=== PATIENT | female | born 1960 | race Caucasian/White ===

== ENCOUNTER 2019-04-16 10:40 | Emergency (ER) | payer OTHER ==
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
[2019-04-16] MEDS ORDERED: Sodium Chloride 0.9% 2.5 ML Syringe FLUSH PRN (11:15)
[2019-04-16] MEDS ORDERED: Ondansetron 4 MG/2 ML SDV IVPUSH ONE (11:15)
[2019-04-16] MEDS ORDERED: Sodium Chloride 0.9% 1,000 ML IV ONE (11:15)
[2019-04-16] MEDS ORDERED: Sodium Chloride 0.9% 10 ML Syringe FLUSH PRN (11:15)
[2019-04-16 11:58] LABS: CARBON DIOXIDE,CO2 24.9 mmol/L (21.0-32.0); POTASSIUM,K 4.1 mmol/L (3.5-5.1)
[2019-04-16 12:26] VITALS: BP 151/89; PULSE 96
== END 2019-04-16 13:05 | disposition home or self-care (01) ==
LOC: MW.ED 10:40
DX: R10.10 Upper abdominal pain, unspecified (principal); R11.0 Nausea; Z88.5 Allergy status to narcotic agent; Z91.040 Latex allergy status; Z91.018 Allergy to other foods
CPT/HCPCS: 36415; 80053; 83690; 84484; 85025; 93005; 96361; 96374; 99283; J2405; J7040

== ENCOUNTER 2019-04-26 09:05 | Day surgery (SDC) | payer OTHER ==
[~2019-04-26 09:05] MED LIST: Lactated Ringers 1,000 ML IV SCH
[2019-04-26] MEDS ORDERED: Ondansetron 4 MG/2 ML SDV IVPUSH ONE (09:32)
--- NOTE | 2019-04-26 09:35 | PCM.PREANE ---
Preanesthetic Assessment - Anesthesia/Transfusion/Family Hx Anesthesia History: Prior Anesthesia Without Reaction Other Type of Anesthesia Reaction Comment: Denies any known problems with anesthesia in past Family History of Anesthesia Reaction: No Transfusion History: No Prior Transfusion(s) Intubation History: Unknown - Review of Systems General: No Symptoms Pulmonary: No Symptoms Cardiovascular: No Symptoms Gastrointestinal: Abdominal Pain, Nausea Neurological: No Symptoms Other: Reports: None - Physical Assessment Height: 5 ft 6 in Weight: 68.492 kg ASA Class: 2 Mental Status: Alert & Oriented x3 Airway Class: Mallampati = 2 Dentition: Reports: Normal Dentition, [place](s) (few on back side) Thyro-Mental Finger Breadths: 3 Mouth Opening Finger Breadths: 3 ROM/Head Extension: Full Lungs: Clear to Auscultation, Normal Respiratory Effort Cardiovascular: Regular Rate, Regular Rhythm - Allergies Allergies/Adverse Reactions: Allergies Allergy/AdvReac Type Severity Reaction Status Date / Time codeine Allergy Unknown Vomiting Verified 04/16/19 10:47 banana [Banana] Allergy Vomiting Verified 04/21/19 09:21 latex Allergy due to Unverified 04/21/19 09:21 banana/kiwi allergy Kiwi Allergy Itching Uncoded 04/16/19 10:47 - Blood Blood Available: No - Anesthesia Plan Pre-Op Medication Ordered: None - Acknowledgements Anesthesia Type Planned: MAC Pt an Appropriate Candidate for the Planned Anesthesia: Yes Alternatives and Risks of Anesthesia Discussed w Pt/Guardian: Yes Pt/Guardian Understands and Agrees with Anesthesia Plan: Yes PreAnesthesia Questionnaire HEENT History: Reports: Other (See Below) Other HEENT History: wears glasses Cardiovascular History: Reports: None Respiratory History: Reports: None Gastrointestinal History: Reports: Colon Polyp, GERD Genitourinary History: Reports: None Musculoskeletal History: Reports: Neck Pain, Chronic Neurological History: Reports: None Psychiatric History: Reports: Anxiety Endocrine/Metabolic History: Reports: Hypothyroidism Hematologic History: Reports: None Immunologic History: Reports: None Oncologic (Cancer) History: Reports: None Dermatologic History: Reports: Eczema - Infectious Disease History Infectious Disease History: Reports: Chicken Pox - Past Surgical History Head Surgeries/Procedures: Reports: None HEENT Surgical History: Reports: None Cardiovascular Surgical History: Reports: None Respiratory Surgical History: Reports: None GI Surgical History: Reports: Cholecystectomy, Colonoscopy, EGD, Shashank Fundoplication Female Surgical History: Reports: Hysterectomy Endocrine Surgical History: Reports: Thyroidectomy, Other (See Below) Other Endocrine Surgeries/Procedures: thyroid surgery Neurological Surgical History: Reports: None Musculoskeletal Surgical History: Reports: None Oncologic Surgical History: Reports: None Dermatological Surgical History: Reports: None - SUBSTANCE USE Smoking Status *Q: Never Smoker Recreational Drug Use History: No - HOME MEDS Home Medications: Home Meds Levothyroxine Sodium [Synthroid] 75 mcg PO ACBRK 03/22/14 [History] busPIRone [Buspar] 15 tab PO DAILY 03/22/14 [History] Dicyclomine [Bentyl] 20 mg PO ASDIRECTED PRN 04/16/19 [History] Ondansetron [Zofran ODT] 4 mg PO Q6H PRN #15 tab.dis 04/16/19 [Rx] Esomeprazole Magnesium [Nexium] 20 mg PO DAILY 04/21/19 [History] LORazepam 1 mg PO ASDIRECTED PRN 04/21/19 [History] Mirabegron [Myrbetriq] 50 mg PO DAILY 04/21/19 [History] - CURRENT (IN HOUSE) MEDS Current Meds: Current Medications Lactated Ringer's (Ringers, Lactated) 1,000 mls @ 125 mls/hr IV ASDIRECTED JACKIE
[2019-04-26] MEDS ORDERED: Propofol 200 MG/20 ML SDV ONE (09:52)
[2019-04-26] MEDS ORDERED: fentaNYL 100 MCG/2 ML SDV ONE (09:53)
[2019-04-26] MEDS ORDERED: Ondansetron 4 MG/2 ML SDV ONE (09:53)
[2019-04-26] MEDS ORDERED: Midazolam 1 MG/ML 2 ML SDV ONE (09:53)
--- NOTE | 2019-04-26 11:23 | PCM.OPNOTE ---
- General Post-Op/Procedure Note Date of Surgery/Procedure: 04/26/19 Operative Procedure(s): egd w bx. colon bx Findings: see [id number] Pre Op Diagnosis: abd pain/n/v Post-Op Diagnosis: Same Anesthesia Technique: Moderate Sedation Primary Surgeon: aRjan Urias Pathology: egd bx colon bx Complications: None Condition: Good
--- NOTE | 2019-04-26 11:43 | PCM.POSTAN ---
POST ANESTHESIA ASSESSMENT - MENTAL STATUS Mental Status: Alert, Oriented - VITAL SIGNS Vital Signs: Last Vital Signs Temp 37.0 C 04/26/19 09:30 Pulse 98 04/26/19 11:19 Resp 18 04/26/19 11:19 BP 150/88 H 04/26/19 11:19 Pulse Ox 98 04/26/19 11:19 - RESPIRATORY Respiratory Status: Respiratory Rate WNL, Airway Patent, O2 Saturation Stable - CARDIOVASCULAR CV Status: Pulse Rate WNL, Blood Pressure Stable - GASTROINTESTINAL GI Status: No Symptoms - PAIN Pain Score: 0 - POST OP HYDRATION Hydration Status: Adequate & Stable - OBSERVATIONS Free Text/Narrative:: no anesthesia problems
[2019-04-26 11:45] VITALS: BP 141/89; PULSE 92
--- NOTE | 2019-04-26 12:03 | PCM48HPAN ---
Post Anesthesia Note - EVALUATION WITHIN 48HRS OF ANESTHETIC Vital Signs in Normal Range: Yes Patient Participated in Evaluation: Yes Respiratory Function Stable: Yes Airway Patent: Yes Cardiovascular Function Stable: Yes Hydration Status Stable: Yes Pain Control Satisfactory: Yes Nausea and Vomiting Control Satisfactory: Yes Mental Status Recovered: Yes Vital Signs: Last Vital Signs Temp 36.3 C 04/26/19 11:26 Pulse 92 04/26/19 11:26 Resp 16 04/26/19 11:26 BP 141/89 H 04/26/19 11:26 Pulse Ox 98 04/26/19 11:26 - COMMENTS/OBSERVATIONS Free Text/Narrative:: no anesthesia problems
--- NOTE | 2019-04-26 12:14 | OR ---
SURGEON: Rajan Urias MD DATE OF PROCEDURE: 04/26/2019 PREOPERATIVE DIAGNOSES: Abdominal pain, nausea, and vomiting. POSTOPERATIVE DIAGNOSES: Esophagogastroduodenoscopy diagnosis is gastric polyp and colon diagnosis is colitis. PROCEDURES PERFORMED: Esophagogastroduodenoscopy with biopsy and colonoscopy with biopsy. DESCRIPTION OF PROCEDURE: EGD: The patient was taken to the endoscopy room, and with the BOATSWAIN MATE, Diprivan was administered. A well-lubricated EGD scope was gently inserted through the oropharynx, down the esophagus, passing through the gastroesophageal junction, into the stomach. The mucosa was examined upon the passage. Any etiology will be noted. Once in the stomach, we continued to advance to the distal antrum, passed through the pylorus into the second portion of the duodenum. Again, the mucosa was examined for any abnormality and etiology. The scope was then retrieved back to the stomach and then retroflexed to look at the fundus of the stomach. If a biopsy was indicated, we will biopsy the antrum, body, and gastroesophageal junction. The air will be sucked out while the scope is retrieved to reduce the patient's discomfort. The patient tolerated the procedure well. There were no intraoperative complications. Dr. Urias was present through the whole procedure. Prior to surgery, a time-out had been called, the patient identified, procedure identified and antibiotic administered. The patient was taken to the endoscopy room. A time out was called, patient identified, and procedure identified. Diprivan was then administrated. Patient went from awake to sleep, hearing doctor talking or door closing is normal. Perineum inspection and digital examination were then performed. A well- lubricated colonoscope was gently inserted through the rectum, advanced past the rectosigmoid junction, the descending colon, splenic flexure, transverse colon, hepatic flexure, ascending colon, arrived to the cecum. Cecum was identified as dictated in the finding. Then the scope was carefully withdrawn while attention was paid to the mucosal surface for any abnormality. Air will be sucked out during the scope withdrawal. At the rectum, retroflexed to examine any rectal diseases, fistula or hemorrhoids. During mucosal examination, abnormality or polyp was noted; picture taken and biopsy performed. Patient tolerated procedure well. There were no intraoperative complications, and Dr. Urias was present throughout the whole procedure. FINDINGS: EGD findings: 1. The patient is easily sedated with BOATSWAIN MATE and Diprivan, the patient is soundly snoring. 2. Oropharynx and proximal esophagus are free of disease, stricture, inflammation. In fact, I can hardly see the GE junction as the patient has Shashank fundoplication. Anyway, the stomach begins at 35 and shows a very minimal salmon-colored change, suggests no acid reflux or mild. Stomach rugae are normal in appearance. Antrum is mildly inflamed. Duodenum is grossly normal, but stomach has a lot of polyp and some of them are quite large, almost like 6 to 7 mm. The duodenal bulb has a polyp, very small, about 4 mm. It was biopsied, removed. The second portion of duodenum is grossly normal. Retroflexed look at the fundus of stomach and it looked like there is a wrap, but apparently it is not like the wrap seen in previous scope. It looked like it has been migrating. No food particle or blood or ulcer observed. Biopsy done at the polyp and antrum and body and GE junction at 35 and sucked out the gas while scope pulling out. During the whole study, there is no food particle, bile, blood, ulcer observed. Colonoscopy findings: 1. The patient is easily sedated with BOATSWAIN MATE and Diprivan, the patient is soundly snoring. 2. Bowel prep is average to above average, some liquid stool, no semi-formed stool. 3. Colon is rather straightforward. Cecum indicated by ileocecal fold, one-to- one indentation, appendiceal orifice. ScopeGuide pointing south. Light emittance is not observed. Mucosa examined upon scope pulling out with some irrigation. The patient does not have diverticulosis or polyp or mass, growth. The patient has quite inflamed colitis at around 90 cm close to the hepatic flexure. Biopsy done. It is a very short area. The colitis area is probably about 5 to 10 cm, very short distance. It was biopsied and random biopsy done throughout the colon because of the patient's abdominal pain. The patient has some external hemorrhoids and mild internal hemorrhoids. The patient would benefit from repeat colonoscopy in 10 years from today or if clinically indicated otherwise. EUN / KAREN /[id number]
== END 2019-04-26 12:40 | disposition home or self-care (01) ==
LOC: MW.SDS 09:05
PROVIDERS: ATTEND Surgery
DX: K29.50 Unspecified chronic gastritis without bleeding (principal); K31.89 Other diseases of stomach and duodenum; K31.7 Polyp of stomach and duodenum; K52.9 Noninfective gastroenteritis and colitis, unspecified; K64.4 Residual hemorrhoidal skin tags; K64.8 Other hemorrhoids; K21.9 Gastro-esophageal reflux disease without esophagitis; E03.9 Hypothyroidism, unspecified; F41.9 Anxiety disorder, unspecified; Z88.5 Allergy status to narcotic agent; Z79.899 Other long term (current) drug therapy; Z91.018 Allergy to other foods
CPT/HCPCS: 43239; 45380; J2001; J2250; J2405; J2704; J3010; J7120; 00813; 88305; 88312

== ENCOUNTER 2020-11-05 23:53 | Emergency (ER) | payer OTHER ==
--- NOTE | 2020-11-06 00:23 | EDM.PDOC ---
ED HPI GENERAL MEDICAL PROBLEM - General Chief Complaint: General Stated Complaint: FATIGUE, UPSET STOMACH Time Seen by Provider: 11/06/20 00:07 - History of Present Illness INITIAL COMMENTS - FREE TEXT/NARRATIVE: History of present illness: [] Over the last 3 days patient has increasing problem with fatigue. She is profoundly fatigued shortly after she eats a meal. It gets a little better if she has temporary chocolate candy intake. Tonight she also had pain that was sudden and sharp in the left chest on the left breast but she has residual soreness there after this short pain went away. She also had some discomfort in her left thigh for 3 days. This caused her concern that she might have a blood clot. The patient has suffered for more than a year with postprandial fatigue. She does not sleep well and takes lorazepam at bedtime. Her is out of town for 3 days and this is disrupted her cycle somewhat. Review of systems: As per history of present illness and below otherwise all systems reviewed and negative. Past medical history: As per history of present illness and as reviewed below otherwise noncontributory. Surgical history: As per history of present illness and as reviewed below otherwise noncontributory. Social history: No reported history of drug or alcohol abuse. Family history: As per history of present illness and as reviewed below otherwise noncontributory. Physical exam: Constitutional - well developed, well-nourished and in no acute distress HEENT - normocephalic, no evidence of trauma - external nose and mouth normal - no mass in neck and no JVD - mucosae moist EYES - full EOM, PERRL, no icterus - no evidence of inflammation, injection, or drainage Respiratory - no respiratory distress, equal bilateral expansion, lungs clear to auscultation and no abnormal lung sounds Cardiovascular - Regular Rhythm with S1 and S2 appreciated and no murmur, gallop or rub. GI - abdomen soft without distension or organomegaly - normal bowel sounds - no guard or rebound Musculoskeletal no gross deformity of long bones or joints - no tenderness, swelling or edema Neurologic - Alert and oriented times four - CN II-XII grossly intact - motor sensory and coordination symmetrically normal Psychiatric -patient has coherent speech and is easy to follow her train of thought. However her speech is very quick almost pressured. She goes from subject to subject really quickly. She has a lot of concerns and worries. Appropriate mood and affect with normal thought content Hematologic - No petechiae or purpura - mucosa appropriate color and sclera not pale - normal nail bed color and refill Integument - no rash or evidence of trauma - normal turgor Diagnostics: [] Therapeutics: [] Impression: [] Plan: [] Definitive disposition and diagnosis as appropriate pending reevaluation and review of above. Middle Abdomen Pain Score (Numeric/FACES): 5 - Related Data Allergies Allergy/AdvReac Type Severity Reaction Status Date / Time codeine Allergy Unknown Vomiting Verified 11/06/20 00:03 banana [Banana] Allergy Vomiting Verified 11/06/20 00:03 latex Allergy due to Verified 11/06/20 00:03 banana/kiwi allergy Kiwi Allergy Mild Itching Uncoded 11/06/20 00:03 Home Meds: Home Meds Levothyroxine Sodium [Synthroid] 75 mcg PO ACBRK 03/22/14 [History] busPIRone [Buspar] 15 tab PO DAILY 03/22/14 [History] Dicyclomine [Bentyl] 20 mg PO ASDIRECTED PRN 04/16/19 [History] Ondansetron [Zofran ODT] 4 mg PO Q6H PRN #15 tab.dis 04/16/19 [Rx] Esomeprazole Magnesium [Nexium] 20 mg PO DAILY 04/21/19 [History] LORazepam 1 mg PO ASDIRECTED PRN 04/21/19 [History] Mirabegron [Myrbetriq] 50 mg PO DAILY 04/21/19 [History] Past Medical History HEENT History: Reports: Other (See Below) Other HEENT History: wears glasses Cardiovascular History: Reports: None Respiratory History: Reports: None Gastrointestinal History: Reports: Colon Polyp, GERD Genitourinary History: Reports: None Musculoskeletal History: Reports: Neck Pain, Chronic Neurological History: Reports: None Psychiatric History: Reports: Anxiety Endocrine/Metabolic History: Reports: Hypothyroidism Hematologic History: Reports: None Immunologic History: Reports: None Oncologic (Cancer) History: Reports: None Dermatologic History: Reports: Eczema - Infectious Disease History Infectious Disease History: Reports: Chicken Pox - Past Surgical History Head Surgeries/Procedures: Reports: None HEENT Surgical History: Reports: None Cardiovascular Surgical History: Reports: None Respiratory Surgical History: Reports: None GI Surgical History: Reports: Cholecystectomy, Colonoscopy, EGD, Shashank Fundoplication Female Surgical History: Reports: Hysterectomy Endocrine Surgical History: Reports: Thyroidectomy, Other (See Below) Other Endocrine Surgeries/Procedures: thyroid surgery Neurological Surgical History: Reports: None Musculoskeletal Surgical History: Reports: None Oncologic Surgical History: Reports: None Dermatological Surgical History: Reports: None Social & Family History - Family History Family Medical History: No Pertinent Family History - Tobacco Use Tobacco Use Status *Q: Never Tobacco User - Caffeine Use Caffeine Use: Reports: None - Recreational Drug Use Recreational Drug Use: No ED ROS GENERAL - Review of Systems Review Of Systems: Comprehensive ROS is negative, except as noted in HPI. ED EXAM, GENERAL - Physical Exam Exam: See Below Free Text/Narrative:: My physical exam is in the HPI #1 Interpretation EKG Interpretation Comments: EKG done at 1:00 AM heart sinus tachycardia heart rate 103 NC interval 146 QT duration 422. [place] 54. Normal QRS. Nonspecific ST changes. Compared to 04/16/2019 no change impression no acute injury Course - Vital Signs Text/Narrative:: Patient felt somewhat better and her vital signs improved after lorazepam. Impression is that there is some significant stress overlay. The rest of her labs look good she did have some chest pain that may be inflammatory. Last Recorded V/S: Last Vital Signs Temp 36.4 C 11/06/20 00:03 Pulse 87 11/06/20 01:25 Resp 17 11/06/20 01:25 BP 146/83 H 11/06/20 01:25 Pulse Ox 98 11/06/20 01:25 - Orders/Labs/Meds Orders: Active Orders 24 hr Category Date Time Status EKG Documentation Completion [RC] AM Care 11/06/20 00:43 Active Sodium Chloride 0.9% [Saline Flush] Med 11/06/20 00:43 Active 10 ml FLUSH ASDIRECTED PRN Sodium Chloride 0.9% [Saline Flush] Med 11/06/20 00:43 Active 2.5 ml FLUSH ASDIRECTED PRN Saline Lock Insert [OM.PC] Stat Oth 11/06/20 00:43 Ordered Medication Orders Sodium Chloride (Sodium Chloride 0.9% 10 Ml Syringe) 10 ml FLUSH ASDIRECTED PRN PRN Reason: Keep Vein Open Last Admin: 11/06/20 01:09 Dose: 10 ml Documented by: VIDA Sodium Chloride (Sodium Chloride 0.9% 2.5 Ml Syringe) 2.5 ml FLUSH ASDIRECTED PRN PRN Reason: Keep Vein Open Last Admin: 11/06/20 01:10 Dose: 2.5 ml Documented by: VIDA Labs: Laboratory Tests 11/06/20 11/06/20 11/06/20 Range/Units 01:05 01:05 01:05 WBC 5.93 (4.0-11.0) K/uL RBC 4.57 (4.30-5.90) M/uL Hgb 13.7 (12.0-16.0) g/dL Hct 40.4 (36.0-46.0) % MCV 88.4 (80.0-98.0) fL MCH 30.0 (27.0-32.0) pg MCHC 33.9 (31.0-37.0) g/dL RDW Std Deviation 41.9 (28.0-62.0) fl RDW Coeff of Maty 13 (11.0-15.0) % Plt Count 192 (150-400) K/uL MPV 9.10 (7.40-12.00) fL Neut % (Auto) 73.5 (48.0-80.0) % Lymph % (Auto) 14.2 L (16.0-40.0) % Reagan % (Auto) 11.1 (0.0-15.0) % Eos % (Auto) 1.0 (0.0-7.0) % Baso % (Auto) 0.2 (0.0-1.5) % Neut # (Auto) 4.4 (1.4-5.7) K/uL Lymph # (Auto) 0.8 (0.6-2.4) K/uL Reagan # (Auto) 0.7 (0.0-0.8) K/uL Eos # (Auto) 0.1 (0.0-0.7) K/uL Baso # (Auto) 0.0 (0.0-0.1) K/uL D-Dimer, Quantitative 0.19 (0.0-0.50) mg/L FEU Sodium 141 (136-145) mmol/L Potassium 3.8 (3.5-5.1) mmol/L Chloride 104 (98-107) mmol/L Carbon Dioxide 27.0 (21.0-32.0) mmol/L BUN 12 (7.0-18.0) mg/dL Creatinine 0.9 (0.6-1.0) mg/dL Est Cr Clr Drug Dosing 60.56 mL/min Estimated GFR (MDRD) > 60.0 ml/min Glucose 118 H (74-106) mg/dL Calcium 8.5 (8.5-10.1) mg/dL Total Bilirubin 0.3 (0.2-1.0) mg/dL AST 13 L (15-37) IU/L ALT 17 (14-63) IU/L Alkaline Phosphatase 64 (46-116) U/L Troponin I < 0.050 (0.000-0.056) ng/mL Total Protein 7.4 (6.4-8.2) g/dL Albumin 4.0 (3.4-5.0) g/dL Globulin 3.4 (2.6-4.0) g/dL Albumin/Globulin Ratio 1.2 (0.9-1.6) Free T4 1.22 (0.76-1.46) ng/dL TSH 3rd Generation 0.93 (0.36-3.74) uIU/mL Meds: Medications Generic Name Dose Route Start Last Admin Trade Name Freq PRN Reason Stop Dose Admin Sodium Chloride 10 ml 11/06/20 00:43 11/06/20 01:09 Sodium Chloride 0.9% 10 Ml Syringe FLUSH 10 ml ASDIRECTED PRN Administration Keep Vein Open Sodium Chloride 2.5 ml 11/06/20 00:43 11/06/20 01:10 Sodium Chloride 0.9% 2.5 Ml Syringe FLUSH 2.5 ml ASDIRECTED PRN Administration Keep Vein Open Discontinued Medications Generic Name Dose Route Start Last Admin Trade Name Freq PRN Reason Stop Dose Admin Lorazepam 1 mg 11/06/20 00:45 11/06/20 00:54 Lorazepam 1 Mg Tab PO 11/06/20 00:46 1 mg ONETIME ONE Administration Departure - Departure Time of Disposition: 02:09 Disposition: Home, Self-Care 01 Condition: Good Clinical Impression: Fatigue, Chest wall pain - Discharge Information Instructions: Fatigue, Chest Wall Pain, [id number] Referrals: Beatrice Miranda NP [Primary Care Provider] - Forms: ED Department Discharge Additional Instructions: All of his symptoms would benefit from good rest. Drop in energy level shortly after a meal suggest a possible need for glucose tolerance test and consideration of postprandial hypoglycemia. If you worry about things and it accelerates your heart rate or raise your blood pressure you need to find a way to deal with those things. [facility] Address: [address] [place] [id number] Hours: walk in 9 AM M-F Chest wall pain should respond to better sleep, more rest, less stress, and anti-inflammatory medicine such as ibuprofen or naproxen. [facility] [address] [place] [id number] [facility] [address] [place] [id number] The following information is given to patients seen in the emergency department who are being discharged to home. This information is to outline your options for follow-up care. We provide all patients seen in our emergency department with a follow-up referral. The need for follow-up, as well as the timing and circumstances, are variable depending upon the specifics of your emergency department visit. If you don't have a primary care physician on staff, we will provide you with a referral. We always advise you to contact your personal physician following an emergency department visit to inform them of the circumstance of the visit and for follow-up with them and/or the need for any referrals to a consulting specialist. The emergency department will also refer you to a specialist when appropriate. This referral assures that you have the opportunity for follow-up care with a specialist. All of these measure are taken in an effort to provide you with optimal care, which includes your follow-up. Under all circumstances we always encourage you to contact your private physician who remains a resource for coordinating your care. When calling for follow-up care, please make the office aware that this follow-up is from your recent emergency room visit. If for any reason you are refused follow-up, please contact the [facility] Emergency Department at and asked to speak to the emergency department charge nurse. Sepsis Event Note (ED) - Evaluation Sepsis Screening Result: No Definite Risk - Focused Exam Vital Signs: Vital Signs Temp Pulse Resp BP Pulse Ox 11/06/20 01:25 87 17 146/83 H 98 11/06/20 00:03 36.4 C 120 H 19 171/105 H 96 - My Orders Last 24 Hours: My Active Orders 11/06/20 00:43 EKG Documentation Completion [RC] AM Sodium Chloride 0.9% [Saline Flush] 10 ml FLUSH ASDIRECTED PRN Sodium Chloride 0.9% [Saline Flush] 2.5 ml FLUSH ASDIRECTED PRN Saline Lock Insert [OM.PC] Stat - Assessment/Plan Last 24 Hours: My Active Orders 11/06/20 00:43 EKG Documentation Completion [RC] AM Sodium Chloride 0.9% [Saline Flush] 10 ml FLUSH ASDIRECTED PRN Sodium Chloride 0.9% [Saline Flush] 2.5 ml FLUSH ASDIRECTED PRN Saline Lock Insert [OM.PC] Stat
[2020-11-06] MEDS ORDERED: Sodium Chloride 0.9% 2.5 ML Syringe FLUSH PRN (00:43)
[2020-11-06] MEDS ORDERED: Sodium Chloride 0.9% 10 ML Syringe FLUSH PRN (00:43)
[2020-11-06] MEDS ORDERED: LORazepam 1 MG Tab PO ONE (00:45)
--- NOTE | 2020-11-06 01:16 | CR ---
Indication: Chest pain Technique: Chest 1 view Comparison: None Findings/Impression: Cardiovascular and mediastinum: Heart size and vasculature are normal in caliber and appearance. Lungs and pleural space: Lungs are clear. No sign of infiltrate or mass. No sign of pleural effusion. No pneumothorax. Bones and soft tissues: No acute findings. Dictated by Dewayne Brown MD @ 11/06/2020 1:14:[address] Dewayne Brown @ Nov 06 2020 1:14AM
[2020-11-06 01:47] LABS: BLOOD UREA NITROGEN,BUN 12 mg/dL (7.0-18.0); CHLORIDE,CL 104 mmol/L (98-107); GLUCOSE RANDOM 118 mg/dL (74-106); POTASSIUM,K 3.8 mmol/L (3.5-5.1); SODIUM,NA 141 mmol/L (136-145)
[2020-11-06 02:23] VITALS: BP 146/87; PULSE 70
== END 2020-11-06 02:24 | disposition home or self-care (01) ==
LOC: MW.ED 23:53
DX: R53.83 Other fatigue (principal); R07.89 Other chest pain; K21.9 Gastro-esophageal reflux disease without esophagitis; E03.9 Hypothyroidism, unspecified; R00.0 Tachycardia, unspecified; Z88.5 Allergy status to narcotic agent; Z91.018 Allergy to other foods; Z91.040 Latex allergy status; Z79.899 Other long term (current) drug therapy
CPT/HCPCS: 36415; 71045; 80053; 84439; 84443; 84484; 85025; 85379; 99285; A9270

== ENCOUNTER 2020-11-11 08:29 | Emergency (ER) | payer OTHER ==
[2020-11-11] MEDS ORDERED: Lactated Ringers 1,000 ML IV ONE (09:39)
[2020-11-11] MEDS ORDERED: Morphine 4 MG/ML Syringe IVPUSH ONE (09:41)
[2020-11-11] MEDS ORDERED: Ondansetron 4 MG/2 ML SDV IVPUSH ONE (10:00)
[2020-11-11] MEDS ORDERED: Ondansetron 4 MG/2 ML SDV ONE (10:01)
[2020-11-11 10:56] LABS: BLOOD UREA NITROGEN,BUN 11 mg/dL (7.0-18.0); CARBON DIOXIDE,CO2 27.8 mmol/L (21.0-32.0); CHLORIDE,CL 103 mmol/L (98-107); GLUCOSE RANDOM 113 mg/dL (74-106); LIPASE 44 U/L (73-393); POTASSIUM,K 4.1 mmol/L (3.5-5.1); SODIUM,NA 140 mmol/L (136-145)
--- NOTE | 2020-11-11 12:26 | CT ---
INDICATION: Left upper quadrant pain. History of Shashank fundoplication. COMPARISON: March 02, 2014. TECHNIQUE: CT examination of the abdomen and pelvis was performed following the uneventful intravenous administration of 100 cc of Isovue 3 7. Thin section axial images were obtained from the lung bases through the pubic symphysis. Oral contrast was administered for this study. Please note that all CT scans at this facility use dose modulation, iterative reconstruction, and/or weight-based dosing when appropriate to reduce radiation dose to as low as reasonably achievable. FINDINGS: LUNG BASES: The lung bases as visualized appear normal. The heart size is normal and the lung bases. There is a hiatal hernia and there are findings of a Shashank fundoplication.The heart size is normal at the lung bases. LIVER/BILIARY SYSTEM:The liver is normal in size and configuration. There is no focal mass and there is no intra- or extra hepatic biliary ductal dilatation.The gallbladder is surgically absent ADRENALS: Normal KIDNEYS, URETERS and BLADDER:Kidneys are normal in size. Benign low-density lesion in the midpole the right kidney measuring 1.8 centimeters. The bladder is distended but there is no evidence of obstructive uropathy. SPLEEN:Normal appearance. PANCREAS: Appears normal. RETROPERITONEUM and MESENTERY: There is no mass, adenopathy or aortic aneurysm. Atherosclerotic vascular calcifications GASTROINTESTINAL SYSTEM: There is no obstruction associated with the fundoplication. The small bowel as visualized appears normal. There is diffuse gaseous distention of colon without air fluid levels, wall thickening or inflammatory process. There is an area of narrowing at this sigmoid junction with the descending colon best seen on axial image 123 of 191. This could be due to a stricture or spasm or conceivably a mass. Mass is not directly visualized. Appropriate follow-up recommended at a clinically appropriate time. PELVIS: There is a 2 centimeter low-density lesion likely in the left ovary. As this patient is presumably postmenopausal, follow-up ultrasound is recommended at a clinically appropriate time. OSSEOUS STRUCTURES and ABDOMINAL WALL: There is an age-appropriate appearance of the osseous structures.No significant abdominal wall defect. OTHER: No free fluid or free air. IMPRESSION: 1. There is gaseous distention of colon without wall thickening or air-fluid levels. There appears to be a point of narrowing of the sigmoid at the junction of the descending colon with the sigmoid which could be due to stricture, spasm or least likely a mass. Follow-up evaluation is recommended at a clinically appropriate time. 2. Low-density left adnexal lesion probably ovarian in origin. Follow-up ultrasound recommended at a clinically appropriate time. 3. Other incidental nonacute appearing findings as discussed above Please note that all CT scans at this facility use dose modulation, iterative reconstruction, and/or weight-based dosing when appropriate to reduce radiation dose to as low as reasonably achievable. Dictated by Salty Montano MD @ 11/11/2020 12:24:[address] Salty Montano @ Nov 11 2020 12:24PM
--- NOTE | 2020-11-11 12:40 | EDM.PDOC ---
ED HPI GENERAL MEDICAL PROBLEM - General Chief Complaint: Gastrointestinal Problem Stated Complaint: NAUSEA/FATIGUE Time Seen by Provider: 11/11/20 08:50 - History of Present Illness INITIAL COMMENTS - FREE TEXT/NARRATIVE: CHIEF COMPLAINT(S): Fatigue HISTORY OF PRESENT ILLNESS: This is a 60-year-old woman with a past medical history of reflux disease status post Shashank fundoplication approximately 19 years ago who comes to the emergency department with a chief complaint of fatigue. The patient states that she has been here multiple times last being Wednesday where she had eaten pizza and had a sharp stabbing pain. She states that she was instructed to get a glucose tolerance test to evaluate for postprandial hypoglycemia. She states that she did have that completed. She states that prior to arrival a couple 2 days ago she had some steak and noodles and she had severe 10 out of 10 upper abdominal pain which she describes as shooting to her back. She states this pain has worsened over the last few months and this has been going on for some time. She denies any nausea or vomiting, diarrhea, melena, hematochezia or hematemesis. She states that she is so afraid to eat that she has switched to a clear liquid diet and now she has some diarrhea. She denies any chest pain, shortness of breath, dysuria, hematuria, vaginal bleeding or vaginal discharge. She denies any Covid exposures. She denies any recent travel, recent surgery, prior history of DVT or PE. She denies any fevers. REVIEW OF SYSTEMS: Constitutional: Positive for fatigue denies fever, chills. Eyes: Denies eye pain Ears, Nose, Mouth, & Throat: Denies earache Cardiovascular: Denies chest pain Respiratory: Denies shortness of breath Gastrointestinal: Positive for epigastric abdominal pain and nausea. Denies hematochezia, hematemesis, bilious emesis, vomiting, melena, hematochezia genitourinary: Denies hematuria Skin:Denies a rash MSK: Denies joint pain Neurological: Denies blurred vision Psychiatric: Denies depression PAST MEDICAL HISTORY: As per history of present illness and as reviewed below otherwise noncontributory. SURGICAL HISTORY: As per history of present illness and as reviewed below otherwise noncontributory. SOCIAL HISTORY: As per history of present illness and as reviewed below otherwise noncontributory. FAMILY HISTORY: As per history of present illness and as reviewed below otherwise noncontributory. EXAMINATION OF ORGAN SYSTEMS/BODY AREAS: Constitutional: Blood pressure was 138/80, heart rate 98, respiratory rate 17 with an oxygen saturation 98% on room air. Temperature 36.6 General: Overall well-appearing woman who is in no acute distress Psychiatric: Appropriate mood and affect. Eyes: No scleral icterus or conjunctival erythema ENMT: Moist mucous membranes. No pharyngeal erythema Cardiovascular: Regular, rate, and rhythm. No gallops, murmurs, or rubs. Bilateral upper extremity pulses symmetric and intact. No peripheral edema. No JVD. Respiratory: Lungs clear to auscultation bilaterally. No wheezes, rales, or rhonchi. Gastrointestinal: Soft, tenderness to palpation in the epigastric and left upper quadrant. No rebound or guarding. Nondistended. Normoactive bowel sounds Genitourinary: No suprapubic tenderness Musculoskeletal: Normal range of motion. Skin: No lesions or abrasions. Neurological: Alert, GCS 15 MEDICAL DECISION MAKING AND COURSE IN THE ED WITH INTERPRETATION/REVIEW OF DIAGNOSTIC STUDIES: This is a 60-year-old woman with a past medical history of severe GERD status post Shashank fundoplication who is on Nexium who comes to the emergency department with chronic fatigue and acute exacerbation of for epigastric abdominal pain who has stable vital signs. The patient has been evaluated multiple times. Given her prior Shashank fundoplication I did have a discussion with the patient. She states that there was some complications with a Shashank fundoplication 19 years ago and she was to follow-up for a revision at [facility]. She states that she never followed up. At this time given the prior surgery will obtain CBC, CMP, lipase as pancreatitis is also on the differential. Will obtain a CT abdomen pelvis with and without contrast. We will provide the patient with 1 L of lactated Ringer's bolus, 4 mg of IV morphine for pain relief and 4 mg of Zofran. Laboratory: CBC reveals leukopenia with a white blood cell count of 3.8 otherwise unremarkable. CMP reveals hyperglycemia at 113, hypocalcemia 8.3 and a normal lipase. On reevaluation prior to CT the patient stated that her pain had significantly improved. The radiological images were viewed by myself along with reading the report from the radiologist. CT abdomen pelvis with p.o. and IV contrast reveals gaseous distention of the colon without wall thickening or air-fluid levels. There appears to be a point narrowing of the sigmoid at the junction of the descending colon with the sigmoid colon which could be due to stricture, spasm and less likely mass. There is a low-density left adnexal lesion probably ovarian. There is no obstruction associated with the fundoplication. After imaging I did discuss all the results of the CT with the patient. I did discuss with her at this time that given her chronic fatigue and continued abdominal pain given that she needs to follow-up approximately 19 years ago I do recommend that she follow-up with her primary care physician and get a referral back to [facility] for further evaluation. I discussed if she had any new or worsening symptoms she is to return to the emergency department. She was amenable to discharge at this time and had no further questions. DISPOSITION: The patient was discharged home in stable condition. The patient will follow up with primary care physician in 3 to 5 days CONDITION: Fair PROCEDURES: None FINAL IMPRESSION(S)/DIAGNOSES: 1. Acute epigastric pain 2. Chronic fatigue Tomy Wilder M.D. - Related Data Allergies Allergy/AdvReac Type Severity Reaction Status Date / Time codeine Allergy Unknown Vomiting Verified 11/11/20 08:55 banana [Banana] Allergy Vomiting Verified 11/11/20 08:55 latex Allergy due to Verified 11/11/20 08:55 banana/kiwi allergy Kiwi Allergy Mild Itching Uncoded 11/11/20 08:55 Home Meds: Home Meds Levothyroxine Sodium [Synthroid] 75 mcg PO ACBRK 03/22/14 [History] busPIRone [Buspar] 15 tab PO DAILY 03/22/14 [History] Dicyclomine [Bentyl] 20 mg PO ASDIRECTED PRN 04/16/19 [History] Ondansetron [Zofran ODT] 4 mg PO Q6H PRN #15 tab.dis 04/16/19 [Rx] Esomeprazole Magnesium [Nexium] 20 mg PO DAILY 04/21/19 [History] LORazepam 1 mg PO ASDIRECTED PRN 04/21/19 [History] Mirabegron [Myrbetriq] 50 mg PO DAILY 04/21/19 [History] Past Medical History HEENT History: Reports: Other (See Below) Other HEENT History: wears glasses Cardiovascular History: Reports: None Respiratory History: Reports: None Gastrointestinal History: Reports: Colon Polyp, GERD Genitourinary History: Reports: None Musculoskeletal History: Reports: Neck Pain, Chronic Neurological History: Reports: None Psychiatric History: Reports: Anxiety Endocrine/Metabolic History: Reports: Hypothyroidism Hematologic History: Reports: None Immunologic History: Reports: None Oncologic (Cancer) History: Reports: None Dermatologic History: Reports: Eczema - Infectious Disease History Infectious Disease History: Reports: Chicken Pox - Past Surgical History Head Surgeries/Procedures: Reports: None HEENT Surgical History: Reports: None Cardiovascular Surgical History: Reports: None Respiratory Surgical History: Reports: None GI Surgical History: Reports: Cholecystectomy, Colonoscopy, EGD, Shashank Fundoplication Female Surgical History: Reports: Hysterectomy Endocrine Surgical History: Reports: Thyroidectomy, Other (See Below) Other Endocrine Surgeries/Procedures: thyroid surgery Neurological Surgical History: Reports: None Musculoskeletal Surgical History: Reports: None Oncologic Surgical History: Reports: None Dermatological Surgical History: Reports: None Social & Family History - Family History Family Medical History: No Pertinent Family History - Tobacco Use Tobacco Use Status *Q: Never Tobacco User - Caffeine Use Caffeine Use: Reports: None - Recreational Drug Use Recreational Drug Use: No ED ROS GENERAL - Review of Systems Review Of Systems: See Below ED EXAM, GENERAL - Physical Exam Exam: See Below Course - Vital Signs Last Recorded V/S: Last Vital Signs Temp 37.1 C 11/11/20 12:50 Pulse 82 11/11/20 12:50 Resp 20 11/11/20 12:50 BP 132/82 11/11/20 12:50 Pulse Ox 98 11/11/20 12:50 - Orders/Labs/Meds Labs: Laboratory Tests 11/11/20 11/11/20 Range/Units 10:10 10:10 WBC 3.80 L (4.0-11.0) K/uL RBC 4.84 (4.30-5.90) M/uL Hgb 14.6 (12.0-16.0) g/dL Hct 43.9 (36.0-46.0) % MCV 90.7 (80.0-98.0) fL MCH 30.2 (27.0-32.0) pg MCHC 33.3 (31.0-37.0) g/dL RDW Std Deviation 44.2 (28.0-62.0) fl RDW Coeff of Maty 13 (11.0-15.0) % Plt Count 198 (150-400) K/uL MPV 10.10 (7.40-12.00) fL Neut % (Auto) 65.1 (48.0-80.0) % Lymph % (Auto) 18.4 (16.0-40.0) % [place] % (Auto) 14.7 (0.0-15.0) % Eos % (Auto) 1.3 (0.0-7.0) % Baso % (Auto) 0.5 (0.0-1.5) % Neut # (Auto) 2.5 (1.4-5.7) K/uL Lymph # (Auto) 0.7 (0.6-2.4) K/uL [place] # (Auto) 0.6 (0.0-0.8) K/uL Eos # (Auto) 0.1 (0.0-0.7) K/uL Baso # (Auto) 0.0 (0.0-0.1) K/uL Nucleated RBC % 0.0 /100WBC Nucleated RBCs # 0 K/uL Sodium 140 (136-145) mmol/L Potassium 4.1 (3.5-5.1) mmol/L Chloride 103 (98-107) mmol/L Carbon Dioxide 27.8 (21.0-32.0) mmol/L BUN 11 (7.0-18.0) mg/dL Creatinine 0.9 (0.6-1.0) mg/dL Est Cr Clr Drug Dosing 60.56 mL/min Estimated GFR (MDRD) > 60.0 ml/min Glucose 113 H (74-106) mg/dL Calcium 8.3 L (8.5-10.1) mg/dL Magnesium 2.1 (1.8-2.4) mg/dL Total Bilirubin 0.4 (0.2-1.0) mg/dL AST 14 L (15-37) IU/L ALT 18 (14-63) IU/L Alkaline Phosphatase 60 (46-116) U/L Total Protein 7.6 (6.4-8.2) g/dL Albumin 4.2 (3.4-5.0) g/dL Globulin 3.4 (2.6-4.0) g/dL Albumin/Globulin Ratio 1.2 (0.9-1.6) Lipase 44 L (73-393) U/L Meds: Medications Discontinued Medications Generic Name Dose Route Start Last Admin Trade Name Marleny PRN Reason Stop Dose Admin Lactated Ringer's 1,000 mls @ 999 mls/hr 11/11/20 09:39 11/11/20 09:57 Ringers, Lactated IV 11/11/20 10:39 999 mls/hr .BOLUS ONE Administration Iopamidol 100 ml 11/11/20 18:19 11/11/20 18:20 Iopamidol 755 Mg/Ml 500 Ml Multipack Bottle IVPUSH 11/11/20 18:20 100 ml ONETIME STA Administration Morphine Sulfate 4 mg 11/11/20 09:41 11/11/20 09:57 Morphine 4 Mg/Ml Syringe IVPUSH 11/11/20 09:42 4 mg ONETIME ONE Administration Ondansetron HCl 4 mg 11/11/20 10:00 11/11/20 10:02 Ondansetron 4 Mg/2 Ml Sdv IVPUSH 11/11/20 10:01 4 mg ONETIME ONE Administration Ondansetron HCl Confirm 11/11/20 10:01 11/11/20 10:04 Ondansetron 4 Mg/2 Ml Sdv Administered 11/11/20 10:02 Not Given Dose 4 mg .ROUTE .STK-MED ONE Departure - Departure Time of Disposition: 12:39 Disposition: Home, Self-Care 01 Condition: Fair Clinical Impression: Abdominal pain - Discharge Information Instructions: Abdominal Pain, Adult Referrals: Beatrice Miranda CONTRACT DRIVER [Primary Care Provider] - Forms: ED Department Discharge Additional Instructions: You were evaluated today on an emergent basis. At this time we did treat your symptoms and you did felt better. The CT of your abdomen did show some air within your intestine but no evidence of any obstruction. In addition there was a low-density left ovarian lesion. We do recommend an ultrasound follow-up with your primary care physician. In addition we did discuss that there was a stricture or spasm in your descending colon near the sigmoid colon. This is nonspecific. At this time given the complexity of her case I do recommend you follow-up with your primary care physician and get a referral to [facility] where your Shashank fundoplication was performed. I do recommend a liquid diet for the next few days and then slowly introduce normal foods. If you have any new or worsening symptoms such as fever, inability to tolerate fluids or food please return to the emergency department. [facility] [address] [place] [address] [facility] [address] [place] [id number] The patient is informed of any results of their evaluation and diagnostic workup and all questions are answered. They are given discharge instructions and return precautions. The patient is stable for discharge. The patient states they understand and agree with the plan and that they will return if their symptoms get worse or if they have any new concerns. The following information is given to patients seen in the emergency department who are being discharged to home. This information is to outline your options for follow-up care. We provide all patients seen in our emergency department with a follow-up referral. The need for follow-up, as well as the timing and circumstances, are variable depending upon the specifics of your emergency department visit. If you don't have a primary care physician on staff, we will provide you with a referral. We always advise you to contact your personal physician following an emergency department visit to inform them of the circumstance of the visit and for follow-up with them and/or the need for any referrals to a consulting specialist. The emergency department will also refer you to a specialist when appropriate. This referral assures that you have the opportunity for follow-up care with a specialist. All of these measure are taken in an effort to provide you with optimal care, which includes your follow-up. Under all circumstances we always encourage you to contact your private ph ysician who remains a resource for coordinating your care. When calling for follow-up care, please make the office aware that this follow-up is from your recent emergency room visit. If for any reason you are refused follow-up, please contact the [facility] Emergency Department at and asked to speak to the emergency department charge nurse. Sepsis Event Note (ED) - Evaluation Sepsis Screening Result: No Definite Risk
[2020-11-11 14:39] VITALS: PULSE 82
[2020-11-11 14:42] VITALS: BP 132/82
[2020-11-11] MEDS ORDERED: Iopamidol 755 MG/ML 500 ML Multipack Bottle IVPUSH STA (18:19)
== END 2020-11-11 12:55 | disposition home or self-care (01) ==
LOC: MW.ED 08:29
DX: R53.83 Other fatigue (principal); R10.13 Epigastric pain; Z91.040 Latex allergy status; Z88.5 Allergy status to narcotic agent; Z91.09 Other allergy status, other than to drugs and biological substances; Z91.018 Allergy to other foods
CPT/HCPCS: 74177; 80053; 83690; 83735; 85025; 96374; 96375; 99284; J2270; J2405; J7120; Q9967; 99283

== ENCOUNTER 2020-12-02 20:07 | Emergency (ER) | payer OTHER ==
[2020-12-02] MEDS ORDERED: Sodium Chloride 0.9% 10 ML Syringe FLUSH PRN (20:51)
[2020-12-02] MEDS ORDERED: Pantoprazole 40 MG in Sodium Chloride 0.9% 10 ML IV ONE (20:51)
[2020-12-02] MEDS ORDERED: Sodium Chloride 0.9% 2.5 ML Syringe FLUSH PRN (20:51)
[2020-12-02] MEDS ORDERED: Sodium Chloride 0.9% 1,000 ML IV ONE (20:52)
--- NOTE | 2020-12-02 20:53 | EDM.PDOC ---
ED HPI GENERAL MEDICAL PROBLEM - General Chief Complaint: Abdominal Pain Stated Complaint: STOMACH PAIN Time Seen by Provider: 12/02/20 20:35 - History of Present Illness INITIAL COMMENTS - FREE TEXT/NARRATIVE: History of present illness: [] The patient complains of pain in the left upper quadrant of her abdomen after she eats. She was seen here by myself on 11/06/2020 with complaints of postprandial fatigue for a year. She was seen again on by my partner. Each of these times we failed to find any physical cause for her postprandial fatigue or for her abdominal pain that she sometimes gets after she eats. Since she had a fundoplication for hyperacidity in [facility] in 2003 my partner recommended she make an appointment. She has an appointment near the end of January of this year to go back to [place] and be seen by her referral rn. The patient said in 2018 she was having pain and fatigue after she ate and so she put herself on a gluten-free diet at the advice of her chiropractor. Since then until the first week of March she did much better. The first week of March she ate meat off a sandwich without the button from a restaurant on the road while she was driving her parents out of town. She had a pain after that and she had a similar episode in August of this year. Shortly before she saw me on 06 November she started having pain after she eats more frequently. She finds that she is asymptomatic on a clear liquid diet. She has no nausea and vomiting, no fever and chills, she does say she has diarrhea but considers 2 loose stools a day diarrhea. The pain is in the left upper quadrant. Review of systems: As per history of present illness and below otherwise all systems reviewed and negative. Past medical history: As per history of present illness and as reviewed below otherwise no ncontributory. Surgical history: As per history of present illness and as reviewed below otherwise noncontributory. Social history: No reported history of drug or alcohol abuse. Family history: As per history of present illness and as reviewed below otherwise noncontributory. Physical exam: Constitutional - well developed, well-nourished and in no acute distress HEENT - normocephalic, no evidence of trauma - external nose and mouth normal - no mass in neck and no JVD - mucosae moist EYES - full EOM, PERRL, no icterus - no evidence of inflammation, injection, or drainage Respiratory - no respiratory distress, equal bilateral expansion, lungs clear to auscultation and no abnormal lung sounds Cardiovascular - Regular Rhythm with S1 and S2 appreciated and no murmur, gallop or rub. GI - abdomen soft without distension or organomegaly - normal bowel sounds - no guard or rebound Musculoskeletal no gross deformity of long bones or joints - no tenderness, swelling or edema Neurologic - Alert and oriented times four - CN II-XII grossly intact - motor sensory and coordination symmetrically normal Psychiatric -appears slightly anxious and concerned about this pain but otherwise appropriate mood and affect with normal thought content Hematologic - No petechiae or purpura - mucosa appropriate color and sclera not pale - normal nail bed color and refill Integument - no rash or evidence of trauma - normal turgor Diagnostics: [] Therapeutics: [] Impression: [] Plan: [] Definitive disposition and diagnosis as appropriate pending reevaluation and review of above. Abdomen Pain Score (Numeric/FACES): 5 - Related Data Allergies Allergy/AdvReac Type Severity Reaction Status Date / Time codeine Allergy Unknown Vomiting Verified 12/02/20 20:24 banana [Banana] Allergy Vomiting Verified 12/02/20 20:24 latex Allergy due to Verified 12/02/20 20:24 banana/kiwi allergy Kiwi Allergy Mild Itching Uncoded 12/02/20 20:24 Home Meds: Home Meds Levothyroxine Sodium [Synthroid] 75 mcg PO ACBRK 03/22/14 [History] busPIRone [Buspar] 15 tab PO DAILY 03/22/14 [History] Dicyclomine [Bentyl] 20 mg PO ASDIRECTED PRN 04/16/19 [History] Ondansetron [Zofran ODT] 4 mg PO Q6H PRN #15 tab.dis 04/16/19 [Rx] Esomeprazole Magnesium [Nexium] 20 mg PO DAILY 04/21/19 [History] LORazepam 1 mg PO ASDIRECTED PRN 04/21/19 [History] Mirabegron [Myrbetriq] 50 mg PO DAILY 04/21/19 [History] Acetaminophen/oxyCODONE [Percocet 325-5 MG] 1 each PO Q4HR PRN #14 tab 12/02/20 [Rx] Past Medical History HEENT History: Reports: Other (See Below) Other HEENT History: wears glasses Cardiovascular History: Reports: None Respiratory History: Reports: None Gastrointestinal History: Reports: Colon Polyp, GERD Genitourinary History: Reports: None 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: None Musculoskeletal History: Reports: Neck Pain, Chronic Neurological History: Reports: None Psychiatric History: Reports: Anxiety Endocrine/Metabolic History: Reports: Hypothyroidism Hematologic History: Reports: None Immunologic History: Reports: None Oncologic (Cancer) History: Reports: None Dermatologic History: Reports: Eczema - Infectious Disease History Infectious Disease History: Reports: Chicken Pox - Past Surgical History Head Surgeries/Procedures: Reports: None HEENT Surgical History: Reports: None Cardiovascular Surgical History: Reports: None Respiratory Surgical History: Reports: None GI Surgical History: Reports: Cholecystectomy, Colonoscopy, EGD, Shashank Fundoplication Female Surgical History: Reports: Hysterectomy Endocrine Surgical History: Reports: Thyroidectomy, Other (See Below) Neurological Surgical History: Reports: None Musculoskeletal Surgical History: Reports: None Oncologic Surgical History: Reports: None Dermatological Surgical History: Reports: None Social & Family History - Family History Family Medical History: No Pertinent Family History - Caffeine Use Caffeine Use: Reports: None - Recreational Drug Use Recreational Drug Use: No ED ROS GENERAL - Review of Systems Review Of Systems: Comprehensive ROS is negative, except as noted in HPI. ED EXAM, GENERAL - Physical Exam Exam: See Below Free Text/Narrative:: My physical exam is in the HPI Course - Vital Signs Last Recorded V/S: Last Vital Signs Temp 36.3 C 12/02/20 20:25 Pulse 102 H 12/02/20 20:25 Resp 18 12/02/20 20:25 BP 166/81 H 12/02/20 20:25 Pulse Ox 97 12/02/20 20:25 - Orders/Labs/Meds Orders: Active Orders 24 hr Category Date Time Status Sodium Chloride 0.9% [Normal Saline] 1,000 ml Med 12/02/20 20:52 Active IV .Bolus Sodium Chloride 0.9% [Saline Flush] Med 12/02/20 20:51 Active 10 ml FLUSH ASDIRECTED PRN Sodium Chloride 0.9% [Saline Flush] Med 12/02/20 20:51 Active 2.5 ml FLUSH ASDIRECTED PRN Saline Lock Insert [OM.PC] Stat Oth 12/02/20 20:51 Ordered Medication Orders Sodium Chloride (Normal Saline) 1,000 mls @ 500 mls/hr IV .Bolus ONE Stop: 12/02/20 22:51 Last Admin: 12/02/20 21:28 Dose: 500 mls/hr Documented by: MARIA DEL ROSARIO Sodium Chloride (Sodium Chloride 0.9% 10 Ml Syringe) 10 ml FLUSH ASDIRECTED PRN PRN Reason: Keep Vein Open Last Admin: 12/02/20 21:28 Dose: 10 ml Documented by: MARIA DEL ROSARIO Sodium Chloride (Sodium Chloride 0.9% 2.5 Ml Syringe) 2.5 ml FLUSH ASDIRECTED PRN PRN Reason: Keep Vein Open Last Admin: 12/02/20 21:28 Dose: 2.5 ml Documented by: MARIA DEL ROSARIO Labs: Laboratory Tests 12/02/20 12/02/20 12/02/20 Range/Units 20:25 20:25 21:16 WBC 4.68 (4.0-11.0) K/uL RBC 4.56 (4.30-5.90) M/uL Hgb 14.1 (12.0-16.0) g/dL Hct 41.0 (36.0-46.0) % MCV 89.9 (80.0-98.0) fL MCH 30.9 (27.0-32.0) pg MCHC 34.4 (31.0-37.0) g/dL RDW Std Deviation 44.5 (28.0-62.0) fl RDW Coeff of Maty 14 (11.0-15.0) % Plt Count 168 (150-400) K/uL MPV 10.10 (7.40-12.00) fL Neut % (Auto) 69.9 (48.0-80.0) % Lymph % (Auto) 18.8 (16.0-40.0) % [place] % (Auto) 10.5 (0.0-15.0) % Eos % (Auto) 0.6 (0.0-7.0) % Baso % (Auto) 0.2 (0.0-1.5) % Neut # (Auto) 3.3 (1.4-5.7) K/uL Lymph # (Auto) 0.9 (0.6-2.4) K/uL [place] # (Auto) 0.5 (0.0-0.8) K/uL Eos # (Auto) 0.0 (0.0-0.7) K/uL Baso # (Auto) 0.0 (0.0-0.1) K/uL Nucleated RBC % 0.0 /100WBC Nucleated RBCs # 0 K/uL Sodium 145 (136-145) mmol/L Potassium 3.9 (3.5-5.1) mmol/L Chloride 107 (98-107) mmol/L Carbon Dioxide 25.2 (21.0-32.0) mmol/L BUN 7 (7.0-18.0) mg/dL Creatinine 0.9 (0.6-1.0) mg/dL Est Cr Clr Drug Dosing 59.76 mL/min Estimated GFR (MDRD) > 60.0 ml/min Glucose 112 H (74-106) mg/dL Lactic Acid 0.8 (0.4-2.0) mmol/L Calcium 9.1 (8.5-10.1) mg/dL Total Bilirubin 0.2 (0.2-1.0) mg/dL AST 13 L (15-37) IU/L ALT 16 (14-63) IU/L Alkaline Phosphatase 51 (46-116) U/L Total Protein 7.3 (6.4-8.2) g/dL Albumin 4.2 (3.4-5.0) g/dL Globulin 3.1 (2.6-4.0) g/dL Albumin/Globulin Ratio 1.4 (0.9-1.6) Lipase 63 L (73-393) U/L Meds: Medications Generic Name Dose Route Start Last Admin Trade Name Freq PRN Reason Stop Dose Admin Sodium Chloride 1,000 mls @ 500 mls/hr 12/02/20 20:52 12/02/20 21:28 Normal Saline IV 12/02/20 22:51 500 mls/hr .Bolus ONE Administration Sodium Chloride 10 ml 12/02/20 20:51 12/02/20 21:28 Sodium Chloride 0.9% 10 Ml Syringe FLUSH 10 ml ASDIRECTED PRN Administration Keep Vein Open Sodium Chloride 2.5 ml 12/02/20 20:51 12/02/20 21:28 Sodium Chloride 0.9% 2.5 Ml Syringe FLUSH 2.5 ml ASDIRECTED PRN Administration Keep Vein Open Discontinued Medications Generic Name Dose Route Start Last Admin Trade Name Freq PRN Reason Stop Dose Admin Pantoprazole Sodium 40 mg/ 10 mls @ 300 mls/hr 12/02/20 20:51 12/02/20 21:28 Sodium Chloride IV 12/02/20 20:52 300 mls/hr NOW ONE Administration Departure - Departure Time of Disposition: 22:13 Disposition: Home, Self-Care 01 Condition: Good Clinical Impression: Pain in the abdomen, Fatigue - Discharge Information Prescriptions: Acetaminophen/oxyCODONE [Percocet 325-5 MG] 1 each PO Q4HR PRN #14 tab PRN Reason: Pain (Severe 7-10) Instructions: Fatigue, Abdominal Pain, Adult, [id number] Referrals: Beatrice Miranda AUTOMATION CONTROL INTEGRATOR [Primary Care Provider] - Forms: ED Department Discharge Additional Instructions: It might be advisable to let your primary doctor review the 3 visits you have had since and including November 06 and give us suggestions. It is very difficult for an emergency physician to make a diagnosis when something is going on for a bit and we have had studies that did not reveal anything that we can fix. Please do not let this comment cause you to hesitate if you have symptoms that you think need evaluation on an emergency basis. You are welcome to return. [facility] - Primary Care [address] [place] [address] [place] [address] The following information is given to patients seen in the emergency department who are being discharged to home. This information is to outline your options for follow-up care. We provide all patients seen in our emergency department with a follow-up referral. The need for follow-up, as well as the timing and circumstances, are variable depending upon the specifics of your emergency department visit. If you don't have a primary care physician on staff, we will provide you with a referral. We always advise you to contact your personal physician following an emergency department visit to inform them of the circumstance of the visit and for follow-up with them and/or the need for any referrals to a consulting spec ialist. The emergency department will also refer you to a specialist when appropriate. This referral assures that you have the opportunity for follow-up care with a specialist. All of these measure are taken in an effort to provide you with optimal care, which includes your follow-up. Under all circumstances we always encourage you to contact your private physician who remains a resource for coordinating your care. When calling for follow-up care, please make the office aware that this follow-up is from your recent emergency room visit. If for any reason you are refused follow-up, please contact the [facility] Emergency Department at and asked to speak to the emergency department charge nurse. Sepsis Event Note (ED) - Evaluation Sepsis Screening Result: No Definite Risk - Focused Exam Vital Signs: Vital Signs Temp Pulse Resp BP Pulse Ox 12/02/20 20:25 36.3 C 102 H 18 166/81 H 97 - My Orders Last 24 Hours: My Active Orders 12/02/20 20:51 Sodium Chloride 0.9% [Saline Flush] 10 ml FLUSH ASDIRECTED PRN Sodium Chloride 0.9% [Saline Flush] 2.5 ml FLUSH ASDIRECTED PRN Saline Lock Insert [OM.PC] Stat 12/02/20 20:52 Sodium Chloride 0.9% [Normal Saline] 1,000 ml IV .Bolus - Assessment/Plan Last 24 Hours: My Active Orders 12/02/20 20:51 Sodium Chloride 0.9% [Saline Flush] 10 ml FLUSH ASDIRECTED PRN Sodium Chloride 0.9% [Saline Flush] 2.5 ml FLUSH ASDIRECTED PRN Saline Lock Insert [OM.PC] Stat 12/02/20 20:52 Sodium Chloride 0.9% [Normal Saline] 1,000 ml IV .Bolus
[2020-12-02 21:07] LABS: BLOOD UREA NITROGEN,BUN 7 mg/dL (7.0-18.0); CARBON DIOXIDE,CO2 25.2 mmol/L (21.0-32.0); CHLORIDE,CL 107 mmol/L (98-107); GLUCOSE RANDOM 112 mg/dL (74-106); LIPASE 63 U/L (73-393); POTASSIUM,K 3.9 mmol/L (3.5-5.1); SODIUM,NA 145 mmol/L (136-145)
[2020-12-02 23:09] VITALS: BP 137/76; PULSE 67
== END 2020-12-02 23:16 | disposition home or self-care (01) ==
LOC: MW.ED 20:07
DX: R10.12 Left upper quadrant pain (principal); R53.83 Other fatigue; E03.9 Hypothyroidism, unspecified; K21.9 Gastro-esophageal reflux disease without esophagitis; Z91.040 Latex allergy status; Z88.5 Allergy status to narcotic agent; Z91.018 Allergy to other foods; Z91.048 Other nonmedicinal substance allergy status
CPT/HCPCS: 36415; 80053; 83605; 83690; 85025; 96374; 99284; C9113; J7030; 99283